=== PATIENT | female | born 1970 | race Caucasian/White ===

== ENCOUNTER 2017-01-29 08:00 | Day surgery (SDC) | payer BC ==
[~2017-01-29] VITALS: Ht 154.9 cm; Wt 86.2 kg
[~2017-01-29 08:00] MED LIST: CEFAZOLIN 2 GM IVPB PREMIX 50 ML IV ONE; GLYCOPYRROLATE 0.2 MG/ML VIAL IJ ONE; KETOROLAC TROMETHAMINE 30 MG VIAL IVP ONE; LR 1,000 ML IV.SOLN IV ONE; MIDAZOLAM HCL 5 MG/5 ML VIAL IVP ONE; NEOSTIGMINE METHYLSULFATE 1 MG/ML, 10 ML VIAL IVP ONE; NS IRRIG SOLN 1000 ML IR ONE; ONDANSETRON HCL 4 MG/2 ML VIAL IVP ONE; PROPOFOL 200MG/ 20ML VIAL (DIPRIVAN) IV ONE; SEVOFLURANE 15 MIN GAS INH ONE; SUCCINYLCHOLINE CHLORIDE 20 MG/ML(QUELICIN) IVP ONE
[2017-01-29] MEDS ORDERED: LR 1,000 ML IV SCH (09:40)
[2017-01-29] MEDS ORDERED: METOCLOPRAMIDE HCL 10 MG/2 ML VIAL IVP PRN (09:45)
[2017-01-29] MEDS ORDERED: MORPHINE 2 MG/ML INJ. SYRINGE IVP PRN ×3 (09:45)
[2017-01-29] MEDS ORDERED: OXYCODONE/ACETAMINOPHEN 5-325 TABLET PO PRN (10:45)
[2017-01-29] MEDS ORDERED: ONDANSETRON HCL 4 MG/2 ML VIAL IVP PRN (10:45)
[2017-01-29] MEDS ORDERED: HYDROmorphone 2 MG TAB PO PRN (10:45)
[2017-01-29] MEDS ORDERED: PROMETHAZINE HCL 25 MG/ML AMP IM PRN (10:45)
[2017-01-29 12:32] VITALS: BP_SYST 105
[2017-01-29] MEDS ORDERED: OXYCODONE/ACETAMINOPHEN 5-325 TABLET ONE (12:36)
[2017-01-29] MEDS ORDERED: ONDANSETRON HCL 4 MG/2 ML VIAL ONE (14:16)
== END 2017-01-29 14:20 | disposition home or self-care (01) ==
LOC: SDS 08:00 → SMU 08:00 → SDS 14:20
PROVIDERS: ATTEND Obstetrics & Gynecology
DX: D25.9 Leiomyoma of uterus, unspecified (principal); N73.6 Female pelvic peritoneal adhesions (postinfective); E66.01 Morbid (severe) obesity due to excess calories
CPT/HCPCS: 36415; 58573; 86886; 86900; 86901; 88307; C1727; J0330; J0690; J1885; J2250; J2405; J2704; J2710; J3490; J7120; E0190